=== PATIENT | female | born 1995 ===

== ENCOUNTER → 2019-04-22 17:52 | Outpatient (CLI) | payer OTHER, SELFPAY ==
[2019-04-22 18:14] LABS: Pregnancy Test Urine Negative (Negative)
== END ==
PROVIDERS: Visit Provider Physician Assistant
DX: Z79.899 Other long term (current) drug therapy (principal); L70.0 Acne vulgaris
CPT/HCPCS: 81025

== ENCOUNTER → 2019-05-22 17:37 | Outpatient (CLI) | payer OTHER, SELFPAY ==
[2019-05-22 18:21] LABS: Pregnancy Test Urine Negative (Negative)
== END ==
PROVIDERS: Visit Provider Physician Assistant
DX: L70.0 Acne vulgaris (principal); Z79.899 Other long term (current) drug therapy
CPT/HCPCS: 81025

== ENCOUNTER → 2019-06-23 18:15 | Outpatient (CLI) | payer OTHER, SELFPAY ==
[2019-06-23 18:27] LABS: Pregnancy Test Urine Negative (Negative)
== END ==
PROVIDERS: Visit Provider Physician Assistant
DX: Z79.899 Other long term (current) drug therapy (principal)
CPT/HCPCS: 81025